=== PATIENT | female | born 1990 | race Caucasian/White ===

== ENCOUNTER 2017-03-15 19:38 | Emergency (ER) | payer MEDICAID ==
[2017-03-15 20:02] VITALS: BP 117/57
[2017-03-15] MEDS ORDERED: IBUPROFEN 800 MG TABLET PO ONE (22:11)
--- NOTE | 2017-03-15 22:12 | ER Document Report ---
HPI - HPI Patient complains to provider of: electric shock Onset: This evening Onset/Duration: Sudden Quality of pain: Achy Pain Level: 1 Context: Patient states that she dropped a piece of frozen corn on a stove top. Patient reached down and received a shock to her right second finger. Patient states that she had hand pain and tingling. Patient states that initially she felt a little woozy but now states that symptom has resolved. Patient does still complain of mild hand discomfort. Associated Symptoms: Other - Electrical shock Exacerbated by: Denies Relieved by: Denies Similar symptoms previously: No Recently seen / treated by doctor: No - ROS ROS below otherwise negative: Yes Systems Reviewed and Negative: Yes All other systems reviewed and negative - CONSTITUTIONAL Constitutional: DENIES: Fever - EENT EENT: DENIES: Sore Throat - NEURO Neurology: DENIES: Headache, Weakness - CARDIOVASCULAR Cardiovascular: DENIES: Chest pain - RESPIRATORY Respiratory: DENIES: Trouble Breathing, Coughing - GASTROINTESTINAL Gastrointestinal: DENIES: Nausea, Patient vomiting - MUSCULOSKELETAL Musculoskeletal: REPORTS: Extremity pain. DENIES: Swelling - DERM Skin Color: Normal Skin Problems: None Past Medical History - General Information source: Patient - Social History Smoking Status: Never Smoker Frequency of alcohol use: Occasional Drug Abuse: None Occupation: [employer] Family History: Reviewed & Not Pertinent Patient has suicidal ideation: No Patient has homicidal ideation: No - Medical History Medical History: Negative Renal/ Medical History: Denies: Hx Peritoneal Dialysis Surgical Hx: Negative Vertical Provider Document - CONSTITUTIONAL Agree With Documented VS: Yes Exam Limitations: No Limitations General Appearance: WD/WN, No Apparent Distress - INFECTION CONTROL TRAVEL OUTSIDE OF THE [place] IN LAST 30 DAYS: No - HEENT HEENT: Atraumatic, Normocephalic, Pharyngeal Tenderness, Pharyngeal Erythema. negative: Pharyngeal Exudate, Tympanic Membrane Red, Tympanic Membrane Bulging - NECK Neck: Normal Inspection, Supple. negative: Lymphadenopathy-Left, Lymphadenopathy-Right - RESPIRATORY Respiratory: Breath Sounds Normal, No Respiratory Distress, Chest Non-Tender O2 Sat by Pulse Oximetry: 99 - CARDIOVASCULAR Cardiovascular: Regular Rate, Regular Rhythm, No Murmur - BACK Back: Normal Inspection - MUSCULOSKELETAL/EXTREMETIES Musculoskeletal/Extremeties: MAEW, FROM Notes: Mild tenderness to right index finger and hand, no singh, no erythema - NEURO Level of Consciousness: Awake, Alert, Appropriate Motor/Sensory: No Motor Deficit - DERM Integumentary: Warm, Dry, No Rash Course - Re-evaluation Re-evalutation: 03/15/17 22:[address] Saldaña regarding patient presentation and the patient's complaint, no testing advised at this time - Vital Signs Vital signs: Temp Pulse Resp BP Pulse Ox 98.9 F 57 L 18 117/57 L 99 03/15/17 19:55 03/15/17 19:55 03/15/17 19:55 03/15/17 19:55 03/15/17 19:55 - Laboratory Laboratory results interpreted by me: 03/15/17 22:54 Labs- Entire Visit 03/15/17 22:00 Group A Strep Rapid NEGATIVE Discharge - Discharge Clinical Impression: Sore throat Electric shock Qualifiers: Encounter type: initial encounter Qualified Code(s): T75.4XXA - Electrocution, initial encounter Condition: Stable Disposition: HOME, SELF-CARE Instructions: Electrical Injury ([facility]), Family Physicians / Practices, Sore Throat ([facility]) Additional Instructions: Return immediately for any new or worsening symptoms Followup with your primary care provider, call tomorrow to make a followup appointment Prescriptions: Naproxen [Naprosyn 250 Nmg Tablet] 1 tab PO BID #14 tablet Forms: Return to Work Referrals: [facility] [Provider Group] - Follow up as needed
== END 2017-03-15 23:20 | disposition home or self-care (01) ==
LOC: ER 19:38
DX: J02.9 Acute pharyngitis, unspecified (principal); T75.4XXA Electrocution, initial encounter; W86.0XXA Exposure to domestic wiring and appliances, initial encounter; Y92.000 Kitchen of unspecified non-institutional (private) residence as the place of occurrence of the external cause
CPT/HCPCS: 99283; 87070; 87880; J3490

== ENCOUNTER 2018-05-28 02:22 | Inpatient (IN) | payer OTHER ==
[2018-05-28 02:48] LABS: APPEARANCE,URINE CLOUDY; BILIRUBIN,URINE NEGATIVE (NEGATIVE); COLOR,URINE YELLOW; GLUCOSE, URINE NEGATIVE (NEGATIVE); KETONES,URINE NEGATIVE (NEGATIVE); LEUKOCYTE ESTERASE,URINE MODERATE (NEGATIVE); NITRITE,URINE NEGATIVE (NEGATIVE); PROTEIN,URINE NEGATIVE (NEGATIVE); UROBILINOGEN,URINE NEGATIVE mg/dL (<2.0)
--- NOTE | 2018-05-28 02:49 | Admission Physical ---
Datetime Report Generated by CPN: 05/28/2018 02:49 CURRENT ADMISSION Chief Complaint: Uterine Contractions Indication for Induction: Not Applicable Admit Impression : Term, Intrauterine ; Active Labor Admit Plan: Admit to Unit; Initiate Labor Protocol ALLERGIES Medication Allergies: No Known Allergies (05/28/2018) OBSTETRICAL HISTORY EDC: 06/03/2018 00:00 PHYSICAL EXAM General: Normal HEENT: Normal Neurologic: Normal Thyroid: Normal Heart: Normal Lungs: Normal Breast: Normal Back: Normal Abdomen: Normal Genitourinary Exam: Normal Extremities: Normal DTRs: Normal Pelvic Type: Adequate Vital Signs: Reviewed; Within Normal Limits VAGINAL EXAM Dilatation: 8 Effacement: 90 Station: -2 Contraction Comments: q 2 MEMBRANES Membranes: Intact FETUS A EGA: 39.1 Monitoring: External US FHR- Baseline: 140s Accelerations: 15X15 Decelerations: None FHR Category: Category I Admit Comment: GBS Neg INFORMED CONSENT Signature: with User ID: [email or web address]
[2018-05-28] MEDS ORDERED: MISOPROSTOL 0.2 MG TABLET ONE (02:53)
[2018-05-28] MEDS ORDERED: OXYTOCIN 10 UNIT/ML VIAL ONE (02:53)
[2018-05-28] MEDS ORDERED: LIDOCAINE 1% INJ-PF (10 MG/ML) 30 ML SDV ONE (02:53)
[2018-05-28] MEDS ORDERED: OXYTOCIN/NORMAL SALINE 20 UNIT/1,000 ML RTUINJ ONE (02:53)
[2018-05-28] MEDS ORDERED: RINGERS SOLUTION,LACTATED 1,000 ML IV ONE (03:05)
[2018-05-28 03:08] LABS: URINE AMPHETAMINES SCREEN NEGATIVE; URINE BARBITURATES SCREEN NEGATIVE; URINE BENZODIAZEPINES SCREEN NEGATIVE; URINE COCAINE SCREEN NEGATIVE; URINE MARIJUANA (THC) SCREEN NEGATIVE; URINE METHADONE SCREEN NEGATIVE; URINE PHENCYCLIDINE SCREEN NEGATIVE
[2018-05-28 03:18] LABS: ABSOLUTE BASOPHILS # (AUTO) 0.1 10^3/uL (0.0-0.2); ABSOLUTE EOSINOPHILS # (AUTO) 0.1 10^3/uL (0.0-0.6); ABSOLUTE LYMPHOCYTES (AUTO) 2.6 10^3/uL (0.5-4.7); ABSOLUTE MONOCYTES (AUTO) 0.9 10^3/uL (0.1-1.4); ABSOLUTE NEUT (AUTO) 8.6 10^3/uL (1.7-8.2); BASOPHILS % (AUTO) 0.9 % (0-2); EOSINOPHILS % (AUTO) 0.4 % (0-6); HEMATOCRIT 38.3 % (36.0-47.0); HEMOGLOBIN 13.3 g/dL (12.0-15.5); MEAN CORPUSCULAR HEMOGLOBIN 30.3 pg (27.0-33.4); MEAN CORPUSCULAR HGB CONC 34.7 g/dL (32.0-36.0); MEAN CORPUSCULAR VOLUME 87 fl (80-97); MONOCYTES % (AUTO) 7.2 % (3-13); PLATELET COUNT 262 10^3/uL (150-450); RED BLOOD COUNT 4.39 10^6/uL (3.72-5.28); RED CELL DISTRIBUTION WIDTH 13.2 % (11.5-14.0); SEGMENTED NEUTROPHILS % (AUTO) 70.5 % (42-78); TOTAL CELLS COUNTED % (AUTO) 100 %; WHITE BLOOD COUNT 12.2 10^3/uL (4.0-10.5)
[2018-05-28] MEDS ORDERED: ACETAMINOPHEN WITH CODEINE #3 TABLET ONE (03:40)
[2018-05-28] MEDS ORDERED: DIPH/PERTUSS(ACELL)/TETANUS VAC/PF 0.5 ML SYR (>=10YO) IM PRN (03:43)
[2018-05-28] MEDS ORDERED: MEASLES,MUMPS&RUBELLA VACC/PF 0.5 ML VIAL SUBCUT PRN (03:43)
[2018-05-28] MEDS ORDERED: BENZOCAINE/MENTHOL AEROSOL SPRAY 56 ML TOP PRN (03:43)
[2018-05-28] MEDS ORDERED: DIBUCAINE 1% OINTMENT 28 GM TP PRN (03:43)
[2018-05-28] MEDS ORDERED: ZOLPIDEM TARTRATE 5 MG TABLET PO PRN (03:43)
[2018-05-28] MEDS ORDERED: OXYTOCIN/NORMAL SALINE 20 UNIT/1,000 ML RTUINJ IV PRN (03:43)
[2018-05-28] MEDS ORDERED: ACETAMINOPHEN WITH CODEINE #3 TABLET PO PRN ×2 (03:43)
--- NOTE | 2018-05-28 03:47 | Warning Signs in Babies ---
VOD Warning Signs Datetime Report Generated by [facility]: 05/28/2018 03:46 VOD#[id number] -Warning Signs in Babies: Needs to be viewed. (05/28/2018 02:25:Jeanie Barnard RN)
[2018-05-28] MEDS: IBUPROFEN 800 MG TABLET PO SCH ×3 (06:03→21:52)
--- NOTE | 2018-05-28 06:26 | Delivery Summary ---
Del Sum A-C Datetime Report Generated by CPN: 05/28/2018 06:25 DELIVERY PERSONNEL DELIVERY PERSONNEL: [id number] Delivery Doctor:: Malena Krueger MD Labor and Delivery Nurse:: Saba Trotter RNpararescue craftsman Nurse:: Jeanie Chalman, RN MATERNAL INFORMATION Delivery Anesthesia: None Medications After Delivery: Pitocin Bolus-Please Comment Meds After Delivery Comment: pitocin 20 units in 1000ml NS IV bolus Estimated Blood Loss (ml): 50 ml Maternal Complications: None Provider Comments: of a viable male at 0327 with an OA with nuchal and body cord x 1 presentation; APGARS 8, 9; 1st degree perineal lac LABOR SUMMARY EDC: 06/03/2018 00:00 No. Babies in Womb: 1 (Annotations: Data stored by [facility] on behalf of user) Attempted: No Labor Anesthesia: None LABOR INFORMATION Reason for Induction: Not Applicable Onset of Labor: 05/27/2018 23:00 Complete Dilatation: 05/28/2018 03:09 Oxytocin: N/A Group B Beta Strep: Negative Antibiotics # of Doses: 0 Antibiotics Time of Last Dose: N/A Name of Antibiotic Given: N/A Steroids Given: None Reason Steroids Not Administered: Not Applicable MEMBRANES Membranes Rupture Method: Spontaneous Rupture of Membranes: 05/28/2018 03:03 Length of Rupture (hr): 0.40 Amniotic Fluid Color: Clear Amniotic Fluid Amount: Moderate Amniotic Fluid Odor: Normal STAGES OF LABOR Stage 1 hr: 4 Stage 1 min: 9 Stage 2 hr: 0 Stage 2 min: 18 Stage 3 hr: 0 Stage 3 min: 2 Total Time in Labor hr: 4 Total Time in Labor min: 29 VAGINAL DELIVERY Episiotomy: None Laceration #1: Perineal Laceration Extension #1: First Degree Laceration Repair: Yes Laceration Repair Note: 2-0 chromic used for repair Sponge Count Correct: Yes Sharps Count Correct: Yes CSECTION DELIVERY Primary Indication: N/A Secondary Indication: N/A CSection Incidence: N/A Labor: N/A Elective: N/A CSection Incision: N/A BABY A INFORMATION Delivery Date/Time: 05/28/2018 03:27 Method of Delivery: Vaginal Born in Route : No : N/A Forceps: N/A Vacuum Extraction: N/A Shoulder Dystocia : No PRESENTATION/POSITION BABY A Presentation: Cephalic Cephalic Presentation: Vertex Vertex Position: Left Occipital Anterior Breech Presentation: N/A PLACENTA INFORMATION BABY A Placenta Delivery Time : 05/28/2018 03:29 Placenta Method of Delivery: Spontaneous Placenta Status: Delivered SCORES BABY A Heart Rate 1 min: >100 bpm Resp Effort 1 min: Good Cry Reflex Irritability 1 min: Cough or Sneeze or Pulls Away Muscle Tone 1 min: Active Motion Color 1 min: Blue/Pale Resuscitation Effort 1 min: Tactile Stimulation SCORE 1 MIN: 8 Heart Rate 5 min: >100 bpm Resp Effort 5 min: Good Cry Reflex Irritability 5 min: Cough or Sneeze or Pulls Away Muscle Tone 5 min: Active Motion Color 5 min: Body Mastic, Extremities Blue Resuscitation Effort 5 min: Tactile Stimulation SCORE 5 MIN: 9 INFANT INFORMATION BABY A Gestational Age at Delivery: 39.1 Gestational Status: Full Term- 39- 40.6 Weeks Infant Outcome : Liveborn Condition : Stable Infant Sex: Male IDENTIFICATION BABY A Verification Date/Time: 05/28/2018 03:46 ID Band Number: [id number] Mother's Name Verified: Yes Infant RN Verifying : Magdalene BarnardSunshine SAUNDERS Additional Verifying Personnel: Cipriano Martinez RN WEIGHT/LENGTH BABY A Infant Birthweight (gm): 3628 Weight (lb): 8 Infant Weight (oz): 0 Length (in): 21.00 Infant Length (cm): 53.34 CORD INFORMATION BABY A No. Cord Vessels: 3 Nuchal Cord : Around Neck x1, Loose Cord Blood Taken: Yes-For Storage (Mom's Blood type +) Infant Suction: Mouth; Nose ASSESSMENT BABY A Infant Complications: None Physical Findings at Delivery: Within Normal Limits Physical Findings- Other: See full nursery assisted living care manager Infant Respirations: Appears Normal Skin to Skin: Yes Mapping Engineer/ALS Called : No Care By: MagdaleneSunshine Bobbyisa RN Transferred To: Remains with Mother BABY B INFORMATION : N/A SIGNATURES Signature: with User ID: [email or web address]
[2018-05-28] MEDS: DOCUSATE SODIUM 100 MG CAPSULE PO SCH ×2 (10:56→17:47)
[2018-05-28] MEDS: PRENATAL VITAMIN W DHA CAPSULE PO SCH (10:56)
[2018-05-28] MEDS: FERROUS SULFATE 325 MG TABLET PO SCH ×2 (10:56→17:47)
[2018-05-28] MEDS: SENNOSIDES/DOCUSATE 8.6-50 MG 1 EACH TABLET PO SCH (10:56)
[2018-05-29] MEDS: IBUPROFEN 800 MG TABLET PO SCH ×3 (05:55→21:28)
[2018-05-29 07:18] LABS: HEMATOCRIT 35.1 % (36.0-47.0); HEMOGLOBIN 12.1 g/dL (12.0-15.5); MEAN CORPUSCULAR HEMOGLOBIN 30.6 pg (27.0-33.4); MEAN CORPUSCULAR HGB CONC 34.4 g/dL (32.0-36.0); MEAN CORPUSCULAR VOLUME 89 fl (80-97); PLATELET COUNT 203 10^3/uL (150-450); RED BLOOD COUNT 3.94 10^6/uL (3.72-5.28); RED CELL DISTRIBUTION WIDTH 13.3 % (11.5-14.0); WHITE BLOOD COUNT 10.2 10^3/uL (4.0-10.5)
--- NOTE | 2018-05-29 09:02 | PDOC PROGRESS REPORT ---
Subjective-OB Progress Note for:: 05/29/18 Subjective: reports bleeding slowing, pain controlled with current meds. denies needs. Physical Exam (OB) Vital Signs: Temp Pulse Resp BP Pulse Ox 98.2 F 54 L 18 109/58 L 98 05/29/18 07:45 05/29/18 07:45 05/29/18 07:45 05/29/18 07:45 05/29/18 07:45 Intake & Output 05/28/18 05/29/18 05/30/18 06:59 06:59 06:59 Intake Total 300 Balance 300 Weight 84.3 kg - Abdomen Description: Soft, Round Hernia Present: No Fundal Description: Firm, Midline Fundal Height: u/u - u/2 - Abdominal Distension: No distension Tenderness: Nontender - Extremities Lower extremities: Karis's sign - neg Calf: Normal, Nontender Objective-Diagnostic Laboratory: 05/29/18 06:39 05/29/18 06:39 WBC 10.2 RBC 3.94 Hgb 12.1 Hct 35.1 L MCV 89 MCH 30.6 MCHC 34.4 RDW 13.3 Plt Count 203 Assessment and Plan(PN) - Assessment and Plan (1) Active labor at term Is this a current diagnosis for this admission?: Yes (2) Normal vaginal delivery Is this a current diagnosis for this admission?: Yes - Time Spent with Patient Time with patient: Less than 15 minutes Medications reviewed and adjusted accordingly: Yes - Disposition Anticipated Discharge: Home Within: within 24 hours
[2018-05-29] MEDS: FERROUS SULFATE 325 MG TABLET PO SCH ×2 (10:54→17:49)
[2018-05-29] MEDS: DOCUSATE SODIUM 100 MG CAPSULE PO SCH ×2 (10:54→17:49)
[2018-05-29] MEDS: SENNOSIDES/DOCUSATE 8.6-50 MG 1 EACH TABLET PO SCH (10:54)
[2018-05-29] MEDS: PRENATAL VITAMIN W DHA CAPSULE PO SCH (10:54)
[2018-05-30] MEDS: IBUPROFEN 800 MG TABLET PO SCH (06:10)
--- NOTE | 2018-05-30 08:09 | PDOC DISCHARGE SUMMARY ---
Final Diagnosis Discharge Date: 05/30/18 - Final Diagnosis (1) Perineal laceration during delivery Is this a current diagnosis for this admission?: Yes (2) Active labor at term Is this a current diagnosis for this admission?: Yes (3) Normal vaginal delivery Is this a current diagnosis for this admission?: Yes Discharge Data - Discharge Medication Prescriptions: Ibuprofen [Motrin 800 mg Tablet] 800 mg PO Q8HP PRN #60 tablet PRN Reason: Abdominal Cramping Home Medications: Pnv No.5/Ferrous Fum/Folic AC [Pnv-Clinical Documentation Clerk-U Capsule] 1 each PO DAILY 05/28/18 Ibuprofen [Motrin 800 mg Tablet] 800 mg PO Q8HP PRN #60 tablet 05/30/18 Reason(s) for Admission: Onset of Labor Procedures: Ultrasound Intrapartum Procedure(s): Spontaneous Vaginal Delivery Complication(s): Laceration-Perineal Laceration-Degree: 1st - Diagnosis Test Laboratory: Temp Pulse Resp BP Pulse Ox 98.2 F 70 18 116/75 97 05/29/18 19:51 05/29/18 19:51 05/29/18 19:51 05/29/18 19:51 05/29/18 19:51 05/28/18 05/28/18 05/29/18 02:27 03:08 06:39 RBC 4.39 3.94 Hgb 13.3 12.1 Hct 38.3 35.1 L Urine Opiates Screen NEGATIVE - Discharge information/Instructions Discharge Activity: Activity As Tolerated, Balance Activity w/Rest, No Lifting Over 10 Pounds, Pelvic Rest, No tub bath, Walk Frequently Discharge Diet: As Tolerated, Regular Disposition: HOME, SELF-CARE Follow up with: [facility] in: 4, Weeks
[2018-05-30] MEDS: PRENATAL VITAMIN W DHA CAPSULE PO SCH (09:54)
[2018-05-30] MEDS: FERROUS SULFATE 325 MG TABLET PO SCH (09:54)
[2018-05-30] MEDS: SENNOSIDES/DOCUSATE 8.6-50 MG 1 EACH TABLET PO SCH (09:54)
[2018-05-30] MEDS: DOCUSATE SODIUM 100 MG CAPSULE PO SCH (09:54)
[2018-05-30 10:10] VITALS: BP 116/75
== END 2018-05-30 11:30 | disposition home or self-care (01) | DRG 807 ==
LOC: LC 02:22 → LR 02:47 → 2S 05:42
PROVIDERS: ADMIT Obstetrics & Gynecology; ATTEND Obstetrics & Gynecology
PROC: 10E0XZZ Delivery of Products of Conception, External Approach (ICD-10-PCS; principal; 2018-05-28)
PROC: 0HQ9XZZ Repair Perineum Skin, External Approach (ICD-10-PCS; 2018-05-28)
PROC: 4A1HXCZ Monitoring of Products of Conception, Cardiac Rate, External Approach (ICD-10-PCS; 2018-05-28)
DX: O69.81X0 Labor and delivery complicated by cord around neck, without compression, not applicable or unspecified (principal); Z37.0 Single live birth; O69.2XX0 Labor and delivery complicated by other cord entanglement, with compression, not applicable or unspecified; O70.0 First degree perineal laceration during delivery; Z3A.39 39 weeks gestation of pregnancy
CPT/HCPCS: 36415; 80307; 81005; 85025; 85027; 86592; 86850; 86900; 86901; J2590; J3490

== ENCOUNTER 2019-04-24 07:36 | Day surgery (SDC) | payer BC, OTHER ==
[2019-04-19 12:25] LABS: HEMOGLOBIN 13.7 g/dL (12.0-15.5); MEAN CORPUSCULAR HEMOGLOBIN 31.7 pg (27.0-33.4); MEAN CORPUSCULAR HGB CONC 35.1 g/dL (32.0-36.0); MEAN CORPUSCULAR VOLUME 90 fl (80-97); PLATELET COUNT 255 10^3/uL (150-450); RED BLOOD COUNT 4.31 10^6/uL (3.72-5.28); RED CELL DISTRIBUTION WIDTH 12.8 % (11.5-14.0); WHITE BLOOD COUNT 7.7 10^3/uL (4.0-10.5)
[2019-04-19 12:33] LABS: APPEARANCE,URINE CLEAR; BILIRUBIN,URINE NEGATIVE (NEGATIVE); COLOR,URINE YELLOW; GLUCOSE, URINE NEGATIVE (NEGATIVE); KETONES,URINE NEGATIVE (NEGATIVE); LEUKOCYTE ESTERASE,URINE NEGATIVE (NEGATIVE); NITRITE,URINE NEGATIVE (NEGATIVE); PROTEIN,URINE NEGATIVE (NEGATIVE); URINE SPECIFIC GRAVITY 1.019; UROBILINOGEN,URINE NEGATIVE mg/dL (<2.0)
[~2019-04-24 07:36] MED LIST: LACTATED RINGERS 1000 ML IV PRN; LIDOCAINE 0.5% INJ-PF (5 MG/ML) 50 ML SDV SUBCUT PRN
[2019-04-24] MEDS ORDERED: HYDROMORPHONE HCL INJ/PF 2 MG/ML AMPULE ONE (09:11)
[2019-04-24] MEDS ORDERED: FENTANYL CITRATE INJ/PF 100 MCG/2 ML AMPUL ONE (09:11)
[2019-04-24] MEDS ORDERED: MIDAZOLAM 2 MG/2 ML INJ ONE (09:12)
[2019-04-24] MEDS ORDERED: PROPOFOL INJ 200 MG/20 ML VIAL IV ONE (09:12)
[2019-04-24] MEDS ORDERED: CEFAZOLIN INJ 1 GM VIAL ONE (09:33)
[2019-04-24] MEDS ORDERED: PROMETHAZINE HCL INJ 25 MG/1 ML VIAL IV PRN ×2 (09:54)
[2019-04-24] MEDS ORDERED: FENTANYL CITRATE INJ/PF 100 MCG/2 ML AMPUL IV PRN ×3 (09:54)
[2019-04-24] MEDS ORDERED: MEPERIDINE HCL/PF INJ 25 MG/1 ML DISP.SYRIN IV PRN (09:54)
[2019-04-24] MEDS ORDERED: DIPHENHYDRAMINE HCL 50 MG/ML VIAL IV PRN (09:54)
[2019-04-24] MEDS ORDERED: HYDROMORPHONE HCL INJ/PF 2 MG/ML AMPULE IV PRN (09:55)
[2019-04-24] MEDS ORDERED: ONDANSETRON HCL INJ/PF 4 MG/2 ML SDV ONE (10:00)
[2019-04-24] MEDS ORDERED: SCOPOLAMINE HYDROBROMIDE 1.5 MG PATCH.TD72 TD ONE (10:00)
[2019-04-24] MEDS ORDERED: KETOROLAC TROMETHAMINE 60 MG/2 ML SDV ONE (10:00)
[2019-04-24] MEDS ORDERED: METOCLOPRAMIDE HCL INJ/PF 10 MG/2 ML SDV ONE (10:00)
[2019-04-24] MEDS ORDERED: LIDOCAINE 2% INJ-PF (20 MG/ML) 2 ML AMPUL ONE (10:00)
[2019-04-24] MEDS ORDERED: GLYCOPYRROLATE 1 MG/5 ML VIAL ONE (10:00)
[2019-04-24] MEDS ORDERED: DEXAMETHASONE SOD PHOSPHATE INJ 4 MG/1 ML VIAL ONE (10:00)
--- NOTE | 2019-04-24 10:05 | Operative Report ---
Operative Report DATE OF SURGERY: 04/24/19 PREOPERATIVE DIAGNOSIS: Labial hypertrophy and labial pain POSTOPERATIVE DIAGNOSIS: Same OPERATION: Excision of excessive labial tissue SURGEON: PARUL CARROLL ANESTHESIA: GA TISSUE REMOVED OR ALTERED: Labial tissue COMPLICATIONS: None PROCEDURE: Patient was placed in a dorsal lithotomy position prepped draped sterile fashion. The labial incisions were outlined with a skin marker. Excess layers of labial tissue on the left was then sharply excised. The right labial tissue was then sharply excised. The defects were closed with running sutures of 2-0 Rapid suture. Hemostasis was noted and procedure was terminated. Patient taken to recovery room in good condition .
[2019-04-24] MEDS ORDERED: OXYCODONE-ACETAMINOPHEN 5-325 MG TABLET PO PRN (10:24)
[2019-04-24] MEDS ORDERED: OXYCODONE-ACETAMINOPHEN 5-325 MG TABLET ONE (10:44)
[2019-04-24 13:29] VITALS: BP 109/59
[2019-04-24] MEDS ORDERED: IBUPROFEN 800 MG TABLET PO SCH (14:00)
[2019-04-24] MEDS ORDERED: ONDANSETRON HCL 8 MG TABLET PO SCH (14:00)
== END 2019-04-24 12:15 | disposition home or self-care (01) ==
LOC: OROUT 07:36
PROVIDERS: ATTEND Obstetrics & Gynecology Gynecology
DX: R10.2 Pelvic and perineal pain (principal); N90.60 Unspecified hypertrophy of vulva
CPT/HCPCS: 36415; 85027; 81025; 81001; 00940; 56620; J2250; J0690; J1100; J1885; J3010; J2765; J2405; J2704; J3490 ×2; 940; J1170